=== PATIENT | female | born 1960 | race Caucasian/White ===

== ENCOUNTER 2017-08-12 22:18 | Emergency (ER) | payer SELFPAY ==
[~2017-08-12] VITALS: Ht 160 cm; Wt 62.7 kg
[~2017-08-12 22:18] MED LIST: LEVO50TA4 PO; METO1TAB9 PO; PRAV20TA2 PO; TRAZ50TA12 PO; XANA1TAB2 PO
[2017-08-12 22:28] VITALS: BP 119/50; PULSE 62; RESP 12; TEMP 98.7; O2SAT 96
[2017-08-12] MEDS ORDERED: SODIUM CHLOR 0.9% 1000 ML INJ 1,000 ML IV ONE (22:28)
[2017-08-12] MEDS ORDERED: ONDANSETRON HCL 4 MG/2 ML VIAL IV PUSH ONE (22:30)
[2017-08-12] MEDS ORDERED: SODIUM CHLORIDE 0.9% FLUSH 10 ML FLUSH IVF PRN (22:30)
[2017-08-12] MEDS ORDERED: NALOXONE HCL 0.4 MG/ML AMP IV PUSH ONE (22:30)
--- NOTE | 2017-08-12 22:30 | PD ---
HPI Chief Complaint: AMS/ possible OD Time Seen by Provider: 22:28 Travel History International Travel<30 days: No Contact w/Intl Traveler<30days: No Traveled to known affect area: No History of Present Illness HPI 56-year-old female with history of hypotension, atrial fibrillation, presents to emergency department for evaluation of altered mental status. Per report, patient has been partaking in the events of , consuming alcohol this evening. Reports are that she'll have 3 drinks. She began feel lightheaded and sat down, then patient think into her seat and went unresponsive. Patient had pinpoint pupils on seeing when paramedics arrived. She was given 0.4 mg Narcan. She seemed to arouse to a GCS of 8. Patient is unable to provide me any history here. She is moaning encumbrance.. She is moving her extremities to command. She is not opening her eyes. Her is on her way to the emergency department. 2245 is at bedside. He tells me that the patient has had 3 drinks. He states that she did not like drink anymore and he went to get her cope. When he came back with a Coke, she looked at him and said she was going to pass out. He then helped her into a chair where she then slouched. She began vomiting. He states this is never happened before he did not know what to do so he contacted 911. [facility] Past Medical History Atrial Fibrillation: Yes Social History Alcohol Use: Yes Tobacco Use: Yes Allergies-Medications (Allergen,Severity, Reaction): Coded Allergies: Penicillins (Verified Allergy, Severe, throat swelling, 05/08/17) Reported Meds & Prescriptions Reported Meds & Active Scripts Active Pravastatin 20 Mg Tab 20 Mg PO DAILY Metoprolol Succinate ER 24 HR (Metoprolol Succinate) 50 Mg Tab 50 Mg PO DAILY Xanax (Alprazolam) 1 Mg Tab 1.25 Mg PO DAILY PRN Levothyroxine (Levothyroxine Sodium) 50 Mcg Tab 50 Mcg PO DAILY Trazodone (Trazodone HCl) 50 Mg Tab 50 Mg PO HS Review of Systems ROS Limitations: Altered Mental Status Physical Exam Exam Limitations: Altered Mental Status Narrative GENERAL: Well-nourished female patient, arousable to painful stimuli, with incomprehensible sounds SKIN: Focused skin assessment warm/dry. HEAD: Atraumatic. Normocephalic. EYES: Pupils equal and round. No scleral icterus. No injection or drainage. ENT: No nasal bleeding or discharge. Mucous membranes pink and moist. NECK: Trachea midline. No JVD. CARDIOVASCULAR: Regular rate and rhythm. No murmur appreciated. RESPIRATORY: No accessory muscle use. Clear to auscultation. Breath sounds equal bilaterally. No tenderness elicited palpation of thoracic cage. No deformities. No crepitus. GASTROINTESTINAL: Abdomen soft, non-tender, nondistended. Hepatic and splenic margins not palpable. MUSCULOSKELETAL: No obvious deformities. No clubbing. No cyanosis. No edema. NEUROLOGICAL: Obtunded No obvious cranial nerve deficits. His extremities to command. Data Data Last Documented VS Vital Signs Date Time Temp Pulse Resp B/P (MAP) Pulse Ox O2 Delivery O2 Flow Rate FiO2 08/12/17 22:28 98.7 62 12 119/50 (73) 96 Orders Orders Electrocardiogram (08/12/17 22:28) Complete Blood Count With Diff (08/12/17 22:28) Comprehensive Metabolic Panel (08/12/17:28) Prothrombin Time / Inr (Pt) (08/12/17:28) Act Partial Throm Time (Ptt) (08/12/17 22:28) Urinalysis - C+S If Indicated (08/12/17 22:28) Chest, Single Ap (08/12/17 22:28) Ct Brain W/O Iv Contrast(Rout) (08/12/17 22:28) Iv Access Insert/Monitor (08/12/17 22:28) Ecg Monitoring (08/12/17 22:28) Oximetry (08/12/17 22:28) Naloxone Inj (Narcan Inj) (08/12/17 22:30) Ondansetron Inj (Zofran Inj) (08/12/17 22:30) Sodium Chloride 0.9% Flush (Ns Flush) (08/12/17 22:30) Sodium Chlor 0.9% 1000 Ml Inj (Ns 1000 M (08/12/17 22:28) Drug Screen, Random Urine (08/12/17 22:28) Alcohol (Ethanol) (08/12/17 22:28) Salicylates (Aspirin) (08/12/17 22:28) Tylenol (Acetaminophen) (08/12/17 22:28) [facility] Medical Decision Making Medical Screen Exam Complete: Yes Emergency Medical Condition: Yes Medical Record Reviewed: Yes Differential Diagnosis Drug overdose versus intoxication versus syncope versus electrolyte abnormality versus intracranial etiology Narrative Course 56-year-old female presents emergency department for evaluation of altered mental status, possible syncopal episode. Patient is obtunded. She arouses to painful stimuli. Does not open eyes. Pupils are equal and reactive. Patient was given 0.4 mg Narcan in route. This did help her to arouse a little and round. She'll be given additional 0.4 mg IV Narcan here. IV fluids are started. Labs, chest x-ray, CT imaging of the brain is also ordered. 2300 patient is signed out to my attending physician. Disposition will pend her judgment. Condition: Stable Aileen Redd Aug 12, 2017 22:30
[2017-08-12 22:54] VITALS: BP 86/49; PULSE 61
[2017-08-12 23:01] VITALS: O2SAT 95
[2017-08-12 23:13] VITALS: BP 114/53; PULSE 65; O2SAT 94
[2017-08-12 23:17] LABS: AUTOMATED NEUTROPHIL # 3.3 TH/MM3 (1.8-7.7); BASOPHIL % 0.6 % (0.0-2.0); EOSINOPHIL % 0.3 % (0.0-4.0); HEMATOCRIT 37.5 % (35.0-46.0); HEMOGLOBIN 12.7 GM/DL (11.6-15.3); LYMPH % 19.2 % (9.0-44.0); LYMPHOCYTE # 0.9 TH/MM3 (1.0-4.8); MEAN CELL VOLUME 98.2 FL (80.0-100.0); MEAN CORPUSCULAR HEMOGLOBIN 33.3 PG (27.0-34.0); MEAN CORPUSCULAR HGB CONC 33.9 % (32.0-36.0); MEAN PLATELET VOLUME 8.6 FL (7.0-11.0); MONOCYTE # 0.6 TH/MM3 (0-0.9); NEUT % 66.9 % (16.0-70.0); PLATELET COUNT 194 TH/MM3 (150-450); RED BLOOD COUNT 3.81 MIL/MM3 (4.00-5.30); RED CELL DISTRIBUTION WIDTH 13.2 % (11.6-17.2); WHITE BLOOD COUNT 4.9 TH/MM3 (4.0-11.0)
[2017-08-12 23:37] LABS: ALBUMIN 3.4 GM/DL (3.4-5.0); AST (GOT) 17 U/L (15-37); BICARBONATE 22.9 MEQ/L (21.0-32.0); BLOOD UREA NITROGEN 19 MG/DL (7-18); CALCIUM 8.1 MG/DL (8.5-10.1); CHLORIDE 106 MEQ/L (98-107); CREATININE 1.04 MG/DL (0.50-1.00); GLOMERULAR FILTRATION RATE 54 ML/MIN (>89); GLUCOSE,RANDOM 95 MG/DL (74-106); SODIUM (NA) 139 MEQ/L (136-145)
[2017-08-12 23:38] LABS: ACETAMINOPHEN LESS THAN 2.0 MCG/ML (10.0-30.0); ALT (GPT) 17 U/L (10-53)
[2017-08-12 23:40] LABS: ALKALINE PHOSPHATASE 57 U/L (45-117); TOTAL BILIRUBIN ADULT 0.2 MG/DL (0.2-1.0); TOTAL PROTEIN 6.5 GM/DL (6.4-8.2)
[2017-08-13 00:18] LABS: BILIRUBIN, URINE NEG (NEG); BLOOD, URINE NEG (NEG); GLUCOSE,URINE NEG (NEG); HYALINE CAST, URINE 3 /lpf (RARE); KETONE, URINE NEG (NEG); MUCUS URINE FEW /lpf (OCC); NITRITE,URINE NEG (NEG); PH, URINE 5.5 (5.0-8.5); SQUAMOUS EPITHELIAL CELL URINE 2 /hpf (0-5); URINE COLOR YELLOW (YELLW/STRAW); URINE LEUKOCYTE ESTERASE NEG (NEG)
--- NOTE | 2017-08-13 00:20 | RADRPT ---
EXAM DATE/TIME: 08/12/2017 23:01 [facility] COMPARISON: No previous studies available for comparison. INDICATIONS : Syncope. MEDICAL HISTORY : None. SURGICAL HISTORY : None. ENCOUNTER: Initial ACUITY: 1 day PAIN SCORE: 0/10 LOCATION: Bilateral chest FINDINGS: A single view of the chest demonstrates the lungs to be symmetrically aerated without evidence of mas s, infiltrate or effusion. The cardiomediastinal contours are unremarkable. Osseous structures are intact. CONCLUSION: No acute cardiopulmonary process. Ry Snow MD on August 13, 2017 at 0:18 Board Certified Radiologist. This report was verified electronically.
--- NOTE | 2017-08-13 00:28 | RADRPT ---
EXAM DATE/TIME: 08/12/2017 23:38 [facility] COMPARISON: No previous studies available for comparison. INDICATIONS : Altered mental status. RADIATION DOSE: 56.35 CTDIvol (mGy) MEDICAL HISTORY : Cardiovascular disease. Hypotension SURGICAL HISTORY : Breast augmentation ENCOUNTER: Initial ACUITY: 1 day PAIN SCALE: Non-responsive LOCATION: cranial TECHNIQUE: Multiple contiguous axial images were obtained of the head. Using automated exposure control and adj ustment of the mA and/or kV according to patient size, radiation dose was kept as low as reasonably a chievable to obtain optimal diagnostic quality images. DICOM format image data is available electro nically for review and comparison. FINDINGS: CEREBRUM: The ventricles are normal for age. No evidence of midline shift, mass lesion, hemorrhage or acute in farction. No extra-axial fluid collections are seen. POSTERIOR FOSSA: The cerebellum and brainstem are intact. The 4th ventricle is midline. The cerebellopontine angle i s unremarkable. EXTRACRANIAL: The visualized portion of the orbits is intact. Severe mucoperiosteal thickening in the left maxillar y antra SKULL: The calvaria is intact. No evidence of skull fracture. CONCLUSION: 1. Chronic sinusitis of the left maxillary antra. 2. Otherwise negative. Ry Snow MD on August 13, 2017 at 0:25 Board Certified Radiologist. This report was verified electronically.
[2017-08-13] MEDS ORDERED: METOCLOPRAMIDE HCL 10 MG TAB PO ONE (01:00)
--- NOTE | 2017-08-13 01:46 | PD ---
Physical Exam Narrative I, Dr. Marcano, have reviewed the advance practice practitioner's documentation and am in agreement, met with the patient face to face, made the diagnosis, and the medical decision making was done by me. *My assessment and Findings: Patient is a 56 year old female who comes in after a near-syncopal episode. She was out for [employer] tonight and she started to feel nauseous and vomited. She then felt as if she would pass out. Exam shows no evidence of trauma. Data Data Last Documented VS Vital Signs Date Time Temp Pulse Resp B/P (MAP) Pulse Ox O2 Delivery O2 Flow Rate FiO2 08/13/17 01:21 Room Air 08/12/17 23:13 65 114/53 (73) 94 08/12/17 22:28 98.7 12 Orders Orders Electrocardiogram (08/12/17 22:28) Complete Blood Count With Diff (08/12/17 22:28) Comprehensive Metabolic Panel (08/12/17 22:28) Prothrombin Time / Inr (Pt) (08/12/17 22:28) Act Partial Throm Time (Ptt) (08/12/17 22:28) Urinalysis - C+S If Indicated (08/12/17 22:28) Chest, Single Ap (08/12/17 22:28) Ct Brain W/O Iv Contrast(Rout) (08/12/17 22:28) Iv Access Insert/Monitor (08/12/17 22:28) Ecg Monitoring (08/12/17 22:28) Oximetry (08/12/17 22:28) Naloxone Inj (Narcan Inj) (08/12/17 22:30) Ondansetron Inj (Zofran Inj) (08/12/17 22:30) Sodium Chloride 0.9% Flush (Ns Flush) (08/12/17 22:30) Sodium Chlor 0.9% 1000 Ml Inj (Ns 1000 M (08/12/17 22:28) Drug Screen, Random Urine (08/12/17 22:28) Alcohol (Ethanol) (08/12/17 22:28) Salicylates (Aspirin) (08/12/17 22:28) Tylenol (Acetaminophen) (08/12/17 22:28) Cath For Specimen (08/12/17 23:02) Metoclopramide (Reglan) (08/13/17 01:00) Labs Laboratory Tests Test 08/12/17 22:51 08/12/17 23:35 White Blood Count 4.9 TH/MM3 Red Blood Count 3.81 MIL/MM3 Hemoglobin 12.7 GM/DL Hematocrit 37.5 % Mean Corpuscular Volume 98.2 FL Mean Corpuscular Hemoglobin 33.3 PG Mean Corpuscular Hemoglobin Concent 33.9 % Red Cell Distribution Width 13.2 % Platelet Count 194 TH/MM3 Mean Platelet Volume 8.6 FL Neutrophils (%) (Auto) 66.9 % Lymphocytes (%) (Auto) 19.2 % Monocytes (%) (Auto) 13.0 % Eosinophils (%) (Auto) 0.3 % Basophils (%) (Auto) 0.6 % Neutrophils # (Auto) 3.3 TH/MM3 Lymphocytes # (Auto) 0.9 TH/MM3 Monocytes # (Auto) 0.6 TH/MM3 Eosinophils # (Auto) 0.0 TH/MM3 Basophils # (Auto) 0.0 TH/MM3 CBC Comment DIFF FINAL Differential Comment Prothrombin Time 10.0 SEC Prothromb Time International Ratio 1.0 RATIO Activated Partial Thromboplast Time 22.4 SEC Blood Urea Nitrogen 19 MG/DL Creatinine 1.04 MG/DL Random Glucose 95 MG/DL Total Protein 6.5 GM/DL Albumin 3.4 GM/DL Calcium Level 8.1 MG/DL Alkaline Phosphatase 57 U/L Aspartate Amino Transf (AST/SGOT) 17 U/L Alanine Aminotransferase (ALT/SGPT) 17 U/L Total Bilirubin 0.2 MG/DL Sodium Level 139 MEQ/L Potassium Level 3.5 MEQ/L Chloride Level 106 MEQ/L Carbon Dioxide Level 22.9 MEQ/L Anion Gap 10 MEQ/L Estimat Glomerular Filtration Rate 54 ML/MIN Salicylates Level 13.2 MG/DL Acetaminophen Level LESS THAN 2.0 MCG/ML Ethyl Alcohol Level 73 MG/DL Urine Color YELLOW Urine Turbidity CLEAR Urine pH 5.[address] 1.024 Urine Protein TRACE mg/dL Urine Glucose (UA) NEG mg/dL Urine Ketones NEG mg/dL Urine Occult Blood NEG Urine Nitrite NEG Urine Bilirubin NEG Urine Urobilinogen LESS THAN 2.0 MG/DL Urine Leukocyte Esterase NEG Urine RBC LESS THAN 1 /hpf Urine WBC 2 /hpf Urine Squamous Epithelial Cells 2 /hpf Urine Hyaline Casts 3 /lpf Urine Mucus FEW /lpf Microscopic Urinalysis Comment CULT NOT INDICATED Urine Opiates Screen NEG Urine Barbiturates Screen NEG Urine Amphetamines Screen NEG Urine Benzodiazepines Screen NEG Urine Cocaine Screen NEG Urine Cannabinoids Screen POS MDM Supervised Visit with [facility]: Yes Narrative Course Patient is feeling better after IVF and Zofran. She denies every having chest pain or SOB. She is offered admission for syncope work-up, but would rather go home. She says she ate a corn dog prior to feeling sick. CT head shows no acute abnormalities. Labs show no acute abnormalities. She is advised to follow up with her doctor. Advised to return to the ED as needed for any worsening symptoms. Diagnosis Primary Impression: Syncope Qualified Codes: R55 - Syncope and collapse Additional Impression: Nausea & vomiting Qualified Codes: R11.2 - Nausea with vomiting, unspecified Patient Instructions: Acute Nausea and Vomiting (ED), General Instructions, Syncope (ED) Additional Instruction: Drink plenty of fluids. Eat a bland diet. Follow up with your doctor. Return to the ED as needed for any worsening symptoms. Disposition: 01 DISCHARGE HOME Condition: Stable Dominga Marcano MD Aug 13, 2017 01:46
--- NOTE | 2017-08-13 12:57 | EKG ---
Date Performed: 08/12/2017 Time Performed: 23:10:02 PTAGE: 56 years EKG: Poor initial anterior forces which may be of normal variant Probably within normal limits A BNORMAL ECG NO PREVIOUS TRACING DOCTOR: Carlo Carbone Interpretating Date/Time 08/13/2017 12:55:55
== END 2017-08-13 02:22 | disposition home or self-care (01) ==
LOC: NEPE 22:18
DX: R55 Syncope and collapse (principal); R11.2 Nausea with vomiting, unspecified; J32.0 Chronic maxillary sinusitis; F12.90 Cannabis use, unspecified, uncomplicated; R94.31 Abnormal electrocardiogram [ECG] [EKG]; I95.9 Hypotension, unspecified; I48.91 Unspecified atrial fibrillation; Z72.0 Tobacco use; Z79.899 Other long term (current) drug therapy
CPT/HCPCS: 70450; 71045; 80053; 80307; 81001; 85025; 85610; 85730; 93005; 96361; 96374; 96375; 99285; J2310; J2405; J7030